=== PATIENT | male | born 1930 | race Caucasian/White ===

== ENCOUNTER 2017-06-29 09:29 | Outpatient (CLI) | payer MEDICARE, BC | END 2017-06-29 09:30 | disposition home or self-care (01) | LOC: BICULT 09:29 | PROVIDERS: ATTEND Otolaryngology Plastic Surgery within the Head & Neck | DX: E04.1 Nontoxic single thyroid nodule (principal); E04.2 Nontoxic multinodular goiter | CPT/HCPCS: 76536 ==

== ENCOUNTER 2018-05-24 06:39 | Outpatient (CLI) | payer MEDICARE, BC ==
--- NOTE | 2018-05-24 08:37 | ULT ---
THYROID ULTRASOUND: Date: 05/24/18 HISTORY: History of thyroid nodules. Evaluate and compare with previous old exam. COMPARISON: 06/29/17. FINDINGS: Multiple longitudinal and transverse images of the thyroid gland obtained using a multihertz linear a rray transducer. Real-time and color flow images obtained. The right thyroid lobe measures 4.6 x 1.7 x 1.4 cm. The left thyroid lobe measures 4.8 x 2.1 x 1.7 cm . Multiple bilateral thyroid nodules are seen. They have not significantly changed since the previous e xam. The largest is in the mid pole of the left thyroid lobe. This lesion at this time measures 2.9 x 1.6 x 1.7 cm, compared to the previous measurement of 3.3 x 1.5 x 2.0 cm. The present sonographic fi ndings suggest no evidence of growth, if anything a slight decrease in size. No other significant radha picious masses seen. IMPRESSION: Stable thyroid sonogram with no significant evidence of increasing thyroid lesions seen. POS: [id number]
== END 2018-05-24 06:40 | disposition home or self-care (01) ==
LOC: BICULT 06:39
PROVIDERS: ATTEND Otolaryngology Plastic Surgery within the Head & Neck
DX: E04.1 Nontoxic single thyroid nodule (principal)
CPT/HCPCS: 76536